=== PATIENT | female | born 1980 | race Caucasian/White ===

== ENCOUNTER 2023-10-25 10:48 | Emergency (ER) | payer OTHER, SELFPAY ==
[2023-10-25 10:51] VITALS: BP 106/85
[2023-10-25 10:53] VITALS: BP 106/85; BMI 20.1
[2023-10-25 11:00] VITALS: BP 109/76
--- NOTE | 2023-10-25 11:08 | ED.GENMED ---
History of Present Illness
General
Chief Complaint: Seizure
Time Seen by Provider: 10/25/23 10:57
History of Present Illness
History of Present Illness:
43-year-old female with significant past medical history presents to the emergency department for evaluation of a loss of consciousness with seizure-like activity that occurred while at a temple basement today. No history of seizures. She does
note that she was placed on antibiotic 2 days ago for a dental infection. Admits to having coffee and no other oral intake this morning. Notes that she felt nauseated and lightheaded before the event occurred. A friend was present and witnessed
the events, stated that she went unconscious for approximately 1 minute and had tremor-like activity the extremities. When she awoke she was minimally confused but not profoundly disoriented. She currently feels mildly lightheaded with no other
complaints at this time. Denies illicit substance use.
Review of Systems
Review of Systems
Allergies reviewed?: Yes
All Other Systems: ROS reviewed and negative except as documented in HPI and ROS
Phy Exam
Physical Exam
Physical Exam:
GEN: Well appearing, NAD, WDWN
HEENT: Oral mucosa moist, no scleral icterus, no nasal congestion
Cardiac: Regular rate and rhythm, no murmurs
Lung: No respiratory distress, no tachypnea, lungs clear to auscultation
MSK: No gross deformity or injuries
Skin: Good color, no pallor or jaundice, no rashes
Neuro: AO x3; CN II-XII grossly intact. BUE strength 5/5 in all lee, sensation intact and symmetric. BLE strength 5/5 in all lee, sensation intact and symmetric
Psych: Calm, cooperative
Course
Orders/Labs/Results
Orders:
Orders
10/25/23 10:50
Electrocardiogram (*1) Urgent
Reason for Study: Vertigo / Dizzy
EKG- Treatment ONCE
10/25/23 11:01
Complete Blood Count/With Diff Urgent
Comprehensive Metabolic Panel Urgent
HCG, Serum Qualitative Screen Urgent
10/25/23 12:05
Add On- LAB Urgent
Tests Added?: hcg qual
10/25/23 12:08
0.9% Sodium Chloride 1000 ml [Nss] 1,000 ml IV BOLUS
Test Result ONCE
Abnormal Lab Results
10/25/23
11:01
Carbon Dioxide 21 L mmol/L
(22-30)
BUN 18 H mg/dl
(7-17)
Glucose 106 H mg/dl
(70-99)
10/25/23 11:01
10/25/23 11:01
Vital Signs
Initial and Last Documented VS:
Initial Vital Signs
BP
106/85
10/25/23 10:51
Last Documented Vital Signs
Temp Pulse Resp BP Pulse Ox
98.2 F 66 13 96/74 100
10/25/23 10:53 10/25/23 13:00 10/25/23 13:00 10/25/23 13:00 10/25/23 13:00
MDM/Problems Addressed
MDM/Problems Addressed:
There is no apparent tongue biting or urinary incontinence and no apparent postictal period. This is likely a syncopal event provoked by lack of significant p.o. intake at increased temperature within the temple which she was located. Patient is
clinically stable and feels well at time of discharge after IV fluids
*Critical Care Note
Total Time (30-74mins, 75-104mins- exclusive of procedures): Not Applicable
ED Attending Note
-
Portions of this chart may have been created with voice recognition software.� Occasional wrong word or��sound alike� substitutions may have occurred due to the inherent limitations of voice recognition software.
Discharge Plan
Departure
Patient Disposition: Home (Routine Discharge)
Date of Disposition: 10/25/23
Time of Disposition: 13:01
Patient with high blood pressure during this ER visit?: No
Discharge Problem:
Syncope
Instructions: Syncope (Fainting) (DC)
Referrals:
NONE,* [Family Provider] -
Interventions
Interventions:
*Risk Screen - Suicide Last Done: 10/25/23 10:53
*General Assessment Last Done: 10/25/23 10:53
*Neglect/Abuse Screening Last Done: 10/25/23 10:53
ED- Fall Risk Assessment Last Done: 10/25/23 11:02
*ED COVID-19 Vaccine History Last Done: 10/25/23 10:53
*Nursing Disposition Last Done: 10/25/23 13:09
ED- Cardiac Assessment Last Done: 10/25/23 11:02
ED- Neurological Assessment Last Done: 10/25/23 11:02
ED- Pulmonary Assessment Last Done: 10/25/23 11:02
Discharge Date and Time
Discharge Date/Time: 10/25/23 13:20
Print Language: [id number]
[2023-10-25 11:09] LABS: % Eosinophils 3.2 % (0-6); % Immature Granulocytes 0.3 % (0-0.5); % Lymphocytes 31.9 % (20.5-51.1); % Monocytes 7.8 % (1.7-9.3); % Neutrophils 55.8 % (42.2-75.2); Absolute Basophils 0.1 10^3/uL (0-0.2); Absolute Eosinophils 0.2 10^3/uL (0-0.7); Absolute Lymphocytes 1.9 10^3/uL (1.2-3.4); Absolute Monocytes 0.5 10^3/uL (0.1-0.6); Absolute Neutrophils 3.3 10^3/uL (1.4-6.5); Hematocrit 38.7 % (37.0-47.0); Hemoglobin 13.7 g/dL (12.0-16.0); Mean Corp Hgb Conc. 35.4 g/dL (33.0-37.0); Mean Corpuscular Hgb 30.8 pg (27.0-31.0); Mean Platelet Volume 9.6 fL (7.4-10.4); Nucleated Red Blood Cells % 0 %; Platelet Count 256 10^3/uL (130-400); Red Blood Cell Count 4.45 10^6/uL (4.20-5.40); Red Cell Dist. Width 12.2 % (11.5-14.5); White Blood Cell Count 5.9 10^3/uL (4.8-10.8)
[2023-10-25 11:24] LABS: ALT (SGPT) 15 U/L (0-35); AST (SGOT) 20 U/L (14-36); Albumin 4.4 g/dl (3.5-5.0); Alkaline Phosphatase 90 U/L (38-126); Blood Urea Nitrogen 18 mg/dl (7-17); Calcium 9.2 mg/dl (8.4-10.2); Carbon Dioxide 21 mmol/L (22-30); Chloride 107 mmol/L (98-107); Estimated Creatinine Clearance 107 ml/min; Glucose 106 mg/dl (70-99); Potassium 4.1 mmol/L (3.5-5.1); Sodium 136 mmol/L (135-145); Total Bilirubin 0.3 mg/dl (0.2-1.3); Total Protein 6.5 g/dl (6.3-8.2); eGFR > 60.00
[2023-10-25 12:00] VITALS: BP 106/69
[2023-10-25] MEDS: NSS 1000 IV (12:12)
[2023-10-25 13:00] VITALS: BP 96/74
[2023-10-25 13:08] LABS: HCG, Serum Qualitative Screen Negative
== END 2023-10-25 13:20 | disposition home or self-care (01) ==
LOC: EMR 10:48
PROVIDERS: EMERGENCY PHYSICIAN Emergency Medicine
DX: R55 Syncope and collapse (principal)
CPT/HCPCS: 99284; 96360; 80053; 84703; 85025; 93005